=== PATIENT | female | born 1990 | race Hispanic/Latino ===

== ENCOUNTER 2020-12-14 09:44 | Emergency (ER) | payer SELFPAY ==
[~2020-12-14] VITALS: Ht 170.2 cm; Wt 121.6 kg
[2020-12-14] MEDS ORDERED: ONDANSETRON ODT4 MG PO (10:30)
[2020-12-14] MEDS ORDERED: LEVSIN-SL0.125 MG SL (10:31)
[2020-12-14] MEDS ORDERED: FAMOTIDINE40 MG PO (10:32)
== END 2020-12-14 10:40 | disposition home or self-care (01) ==
LOC: FSED 10:18
DX: R10.13 Epigastric pain (principal); R11.0 Nausea; R19.7 Diarrhea, unspecified; B34.9 Viral infection, unspecified
CPT/HCPCS: 81003; 81025; 99283